=== PATIENT | male | born 2000 | race Caucasian/White ===

== ENCOUNTER 2019-02-20 00:06 | Emergency (ER) | payer OTHER ==
[2019-02-20] MEDS ORDERED: ONDANSETRON DISINTEGRATING 4 MG TAB PO ONE (00:34)
[2019-02-20] MEDS ORDERED: ACETAMINOPHEN 500 MG TAB PO ONE (01:04)
--- NOTE | 2019-02-20 01:04 | EDPHY ---
H & P Stated Complaint: Head trauma, -LOC, JAFFE, N/V, unsteady, neck pain, advil [employer] Time Seen by Provider: 02/20/19 00:40 HPI/ROS: Chief Complaint: Head injury HPI: 18-year-old male fell backwards while playing football striking the right side of his head. Did not have a loss of consciousness. This happened about 7: 00 a.m. In the evening. He immediately had headache which then went away. Approximately 30 min later the headache came back me got steadily worse. 2 hr later the patient vomited twice. That made his headache even worse. Headache is now about a 7/10. Has had some persistent nausea. No numbness or weakness. No neck pain. No prior head injuries. ROS: 10 systems were reviewed and were negative except those elements noted in the HPI. PMH: Denies Social History: No smoking, no alcohol, no recreational drug use Family History: non-contributory Physical Exam: Gen: Awake, Alert, Airway Intact HEENT: Head: Mild right parietal tenderness with small hematoma, no deformity Eyes: PERRLA, EOMI Nose: No epistaxis Mouth: Normal dentition, Airway patent Face: No deformity Neck: non-tender, no stepoff, Full ROM without pain Chest: non-tender, lungs CTA Heart: normal heart tones Abd: soft, non-tender, atraumatic Pelvis: non-tender, stable to AP and Lateral compression Back: atraumatic, no midline tenderness Ext: atramatic, full ROM Skin: no rash Neuro: CN II-XII intact, Strength 5/5 in all extremities, sensation intact in all extremities - Personal History Current Tetanus/Diphtheria Vaccine: Yes Current Tetanus Diphtheria and Acellular Pertussis (TDAP): Yes - Medical/Surgical History Hx Asthma: No Hx Chronic Respiratory Disease: No Hx Diabetes: No Hx Cardiac Disease: No Hx Renal Disease: No Hx Cirrhosis: No Hx Alcoholism: No Hx HIV/AIDS: No Hx Splenectomy or Spleen Trauma: No Other PMH: concussions - Social History Smoking Status: Never smoked Constitutional: Initial Vital Signs Temperature (C) 37.0 C 02/20/19 00:08 Heart Rate 54 L 02/20/19 00:08 Respiratory Rate 18 02/20/19 00:08 Blood Pressure 131/66 H 02/20/19 00:08 O2 Sat (%) 95 02/20/19 00:08 O2 Delivery Mode Room Air Allergies/Adverse Reactions: No Known Allergies Allergy (Unverified 02/20/19 00:08) Home Medications: Medication Instructions Recorded NK [No Known Home Meds] 02/20/19 Medical Decision Making - Diagnostics Imaging Results: HISTORY: Trauma to R parietal. COMPARISON: None. FINDINGS: There is no acute intracranial hemorrhage, mass effect or cerebral edema. The ventricles and basal cisterns are normal in size and configuration. There is no midline shift or herniation. The imaged paranasal sinuses and mastoid air cells are clear. No calvarial fracture identified. IMPRESSION: No acute intracranial abnormality, specifically no evidence of calvarial fracture or intracranial hemorrhage. ELECTRONICALLY SIGNED BY: Sanjay Acevedo MD Feb 20, 2019 1:54:29 AM MDT ED Course/Re-evaluation: 18-year-old male status post fall with worsening headache. CT scan is negative for acute intracranial injury. Patient has been reassured. Will discharge with oral analgesia, follow up with [facility]. - Data Points Medications Given: Discontinued Medications Acetaminophen (Tylenol) 1,000 mg PO EDNOW ONE Stop: 02/20/19 01:05 Last Admin: 02/20/19 01:15 Dose: 1,000 mg Ondansetron HCl (Zofran Odt) 4 mg PO EDNOW ONE Stop: 02/20/19 00:35 Last Admin: 02/20/19 00:37 Dose: 4 mg Departure - Departure Disposition: Home, Routine, Self-Care Clinical Impression: Head injury Condition: Good Instructions: Head Injury (ED) Additional Instructions: You may take acetaminophen, 1000 mg every 8 hr. [facility] 2-3 days if symptoms are not improving. Referrals: NONE *PRIMARY CARE P,. [Primary Care Provider] - As per Instructions [facility] [Clinic] - As per Instructions
[2019-02-20 02:24] VITALS: BP 112/58
== END 2019-02-20 02:23 | disposition home or self-care (01) ==
DX: S09.90XA Unspecified injury of head, initial encounter (principal); W19.XXXA Unspecified fall, initial encounter; Y93.61 Activity, american tackle football